=== PATIENT | male | born 1985 | race Caucasian/White ===

== ENCOUNTER 2017-11-05 13:04 | Emergency (ER) | payer BC, OTHER ==
[2017-11-05 13:41] LABS: Hematocrit 46.9 % (42.0-52.0); Hemoglobin 16.8 gm/dL (13.5-18.0); Mean Cell Volume 83.3 fl (78-100); Mean Corpuscular Hemoglobin 29.8 pg (27-31); Mean Corpuscular Hgb Conc 35.8 g/dl (32-36); Mean Platelet Volume 10.3 fl (6.0-9.5); Neutrophil # 4.9 K/mm3 (1.3-6.0); Neutrophil % 65.1 % (42-75.0); Platelet Count 237 K/mm3 (150-450); Red Blood Count 5.63 M/mm3 (4.7-6.0); White Blood Count 7.5 K/mm3 (4.0-10.5)
[2017-11-05 13:51] LABS: Urine Bilirubin Negative (NEGATIVE); Urine Blood Negative /ul (NEGATIVE); Urine Ketone Negative (NEGATIVE); Urine Nitrite Negative (NEGATIVE); Urine Protein Negative (NEGATIVE); Urine Specific Gravity >=1.030 SP.GR. (1.005-1.030); Urine Urobilinogen Normal (NORMAL); Urine pH 5.5 pH (5.0-7.0)
[2017-11-05 13:53] LABS: Albumin * 4.2 gm/dl (3.4-5.0); Anion Gap 13.9 mmol/L (6.8-13.8); BUN/Creatinine Ratio 12.3 (9.0-21.6); Bilirubin, Total 0.4 mg/dL (0.0-1.1); Ca. Corrected For Albumin 8.4 mg/dL (8.4-10.2); Calcium * 8.9 mg/dL (7.9-10.9); Carbon Dioxide 28.2 mmol/L (24-32.6); Magnesium 1.9 mg/dL (1.2-2.8); Potassium 4.1 mmol/L (3.4-4.6); Total Protein 7.7 gm/dL (6.2-8.2)
[2017-11-05 14:00] VITALS: BP 142/66
[2017-11-05 14:00] LABS: Urine Appearance Clear; Urine Bacteria None Seen; Urine Color Yellow; Urine RBC None Seen /hpf (0-5); Urine WBC None Seen /hpf (0-5)
--- NOTE | 2017-11-05 14:02 | ERNOTE ---
Abdominal HPI - General Chief Complaint: Abdominal Pain Time Seen by Provider: 11/05/17 13:19 Source: patient Exam Limitations: no limitations - Immun/Allergies/Home Medications Immunizatons: IMMUNIZATION HX Immunizations Up to Date Yes History of Influenza Vaccine No Hx Pneumococcal Vaccination No Allergies/Adverse Reactions: Allergies amphetamine aspartate [From Adderall] Allergy (Verified 11/05/17 13:16) amphetamine sulfate [From Adderall] Allergy (Verified 11/05/17 13:16) dextroamphetamine saccharate [From Adderall] Allergy (Verified 11/05/17 13:16) dextroamphetamine sulfate [From Adderall] Allergy (Verified 11/05/17 13:16) - History of Present Illness Narrative: Patient complains of right lower quadrant abdominal pain of several months standing. He states he knows it is not his appendix because he has had that removed. The pain radiates all the way down into the right inguinal region. Timing: constant Quality: mild Activities at Onset: none Associated Symptoms: Present: denies symptoms Prior Abdominal Problems: Present: none Review of Systems - Review of Systems Constitutional: Present: See HPI EYE: Present: no symptoms reported ENT: Present: no symptoms reported Respiratory: Present: no symptoms reported Cardiology: Present: no symptoms reported Gastrointestinal/Abdominal: Present: See HPI Genitourinary: Present: no symptoms reported Musculoskeletal: Present: no symptoms reported Skin: Present: no symptoms reported Neurological: Present: no symptoms reported Endocrine: Present: no symptoms reported Hematologic/Lymphatic: Present: no symptoms reported Psych: Present: no symptoms reported - Patient's Past Medical History Patient History - Medical: ADHD Patient History - Cardiac/Respiratory: No pertinent hx Patient History - Cancer: No Hx of Cancer Patient History - Surgical Procedures: Appendectomy, T & A, Other Patient History - Other: None - Social History Living Situations: home Abuse History: No History of abuse Psych History: No pertinent hx Smoking Status: Current every day smoker Have you smoked in the past 12 months: Yes Do you dip or chew tobacco: No Alcohol Use: occasionally Drug Use: none - Immunizations Immunizations Up to Date: Yes Hx Pneumococcal Vaccination: No History of Influenza Vaccine: No Physical Exam - Physical Exam General Appearance: Present: wd/wn, alert, mild distress Head Exam: Present: normal inspection, no evidence of injury Eye Exam: Normal inspection: bilateral, PERRL: bilateral Ears, Nose, Throat: Present: normal ENT inspection, H, normal pharynx Neck: Present: normal inspection, nontender Respiratory: Present: no respiratory distress, normal breath sounds, no accessory muscle use, chest nontender, lungs clear Cardiovascular/Chest: Present: regular rate, rhythm, no murmur, normal peripheral pulses Gastrointestinal/Abdominal: Present: normal bowel sounds, nondistended, soft, no organomegaly, tenderness - while there is tenderness in the right inguinal ring I do not feel any obvious hernia either direct or indirect Rectal Exam: Present: deferred Male Genitals Exam: Present: inguinal tenderness - right-sided Back Exam: Present: normal inspection, normal range of motion Extremity Exam: Present: normal inspection, non-tender, no edema, normal range of motion Neurological Exam: Present: alert, oriented, normal mood/affect Skin Exam: Present: normal color, warm/dry Lymphatic Exam: Present: no adenopathy ED Progress - Results and Orders Patient's Lab Results:: I have reviewed the patient's lab results. - Vital Signs Patient's Vital Signs:: I have reviewed the patient's vital signs. Vital Signs: Vital Signs 11/05/17 11/05/17 13:11 13:59 Temperature 36.8 C Pulse Rate 95 98 Respiratory 19 16 Rate Blood Pressure 149/78 142/66 O2 Sat by Pulse 98 97 Oximetry - X-Ray X-Ray #1 X-Ray: abdomen Interpretation: Reviewed by me - Progress/Reassessment Chief Complaint: Abdominal Pain Plan - Plan Plan: Unclear etiology for the chronic right lower quadrant abdominal pain, however we discussed a possible colonoscopy and he will be given the name of the on- call surgeon for follow-up. Departure Clinical Impression: Chronic abdominal pain - Departure Disposition: Home self-care Condition: Good Instructions: Abdominal Pain, Adult, [id number] Additional Instructions: call Dr. York for an appointment Referrals: Caroline York MD [Staff Physician] -
== END 2017-11-05 14:18 | disposition home or self-care (01) ==
LOC: ER 13:04
DX: G89.29 Other chronic pain; F17.200 Nicotine dependence, unspecified, uncomplicated; R10.31 Right lower quadrant pain
CPT/HCPCS: 36415; 74019; 74020; 80053; 81001; 83690; 83735; 85025; 99282